=== PATIENT | male | born 1975 | race Caucasian/White ===

== ENCOUNTER 2018-06-24 07:34 | Emergency (ER) | payer BC, MEDICAID ==
[~2018-06-24] VITALS: Ht 167.6 cm; Wt 78.4 kg
[2018-06-24] MEDS ORDERED: ACETAMINOPHEN 325MG TABLET PO STA (08:51)
[2018-06-24] MEDS ORDERED: SODIUM CHLORIDE 0.9% 1000ML BAG (SEPSIS BOLUS) IV ONE (09:00)
[2018-06-24 09:01] LABS: BASOPHILS % 0.8 % (0.0-2.0); HEMATOCRIT. 45.4 % (42.0-52.0); HEMOGLOBIN. 15.7 g/dL (14.0-18.0); LYMPHOCYTES % 14.5 % (20.0-50.0); MEAN CORPUSCULAR HEMOGLOBIN 32.3 pg (28.0-32.0); MEAN CORPUSCULAR VOLUME 93.2 fL (80.0-94.0); MEAN PLATELET VOLUME 8.4 fl (7.4-10.4); MONOCYTES % 5.6 % (2.0-8.0); NEUTROPHILS % 78.1 % (40.0-76.0); PLATELET 240 x1000/uL (130-400); RED BLOOD CELL COUNT 4.87 mill/uL (4.7-6.1); RED CELL DISTRIBUTION WIDTH 13.1 % (11.6-14.6)
[2018-06-24 09:09] LABS: CHLORIDE 107 mEq/L (98-107)
[2018-06-24 09:26] LABS: PROTHROMBIN TIME 10.2 sec (9.6-11.0)
[2018-06-24 11:10] LABS: CLARITY URINE CLEAR (CLEAR); COLOR URINE DARK YELLOW (YELLOW); KETONES URINE NEGATIVE (NEGATIVE); LEUKOCYTE ESTERASE URINE NEGATIVE (NEGATIVE); NITRITE URINE NEGATIVE (NEGATIVE); OCCULT BLOOD URINE NEGATIVE (NEGATIVE); PH URINE 5.5 (4.5-8.0); PROTEIN URINE 1+ (NEGATIVE); SPECIFIC GRAVITY URINE 1.023 (1.005-1.030)
[2018-06-24 12:40] VITALS: BP 97/58
== END 2018-06-24 12:40 | disposition home or self-care (01) ==
LOC: ER 07:34 → CANBEDREQ 17:14
DX: B34.9 Viral infection, unspecified (principal); M79.18 Myalgia, other site; R05 Cough; R50.81 Fever presenting with conditions classified elsewhere
CPT/HCPCS: 36415; 71045; 80053; 81003; 83605; 84484; 85025; 85610; 87040; 87086; 87804; 93005; 99284; J7030